=== PATIENT | male | born 1950 | race Asian ===

== ENCOUNTER → 2017-07-18 | Outpatient (CLI) | payer MEDICARE | END | disposition home or self-care (01) | LOC: RADMN 10:11 | PROVIDERS: ATTEND Physical Medicine & Rehabilitation Spinal Cord Injury Medicine | DX: M17.11 Unilateral primary osteoarthritis, right knee (principal); S83.241A Other tear of medial meniscus, current injury, right knee, initial encounter; M22.41 Chondromalacia patellae, right knee; M70.51 Other bursitis of knee, right knee; X58.XXXA Exposure to other specified factors, initial encounter; Y93.9 Activity, unspecified; Y92.9 Unspecified place or not applicable; Y99.9 Unspecified external cause status | CPT/HCPCS: 73721 ==

== ENCOUNTER 2018-11-13 15:37 | Emergency (ER) | payer MEDICARE, OTHER ==
[~2018-11-13] VITALS: Ht 162.6 cm; Wt 57.0 kg
[2018-11-13] MEDS ORDERED: CARB15DR OU (16:10)
[2018-11-13] MEDS ORDERED: FLUORESCEIN SODIUM 1 MG STRIP ONE (16:40)
[2018-11-13] MEDS ORDERED: PROPARACAINE HCL 0.5% 15 ML OPHTHALMIC SOLUTION OD ONE (16:45)
[2018-11-13 17:09] VITALS: BP 125/71
== END 2018-11-13 17:11 | disposition home or self-care (01) ==
LOC: EMS 15:37
DX: H57.89 Other specified disorders of eye and adnexa (principal)